=== PATIENT | female | born 1955 | race American Indian/Alaskan Native ===

== ENCOUNTER 2017-06-24 10:54 | Emergency (ER) | payer SELFPAY ==
[2017-06-24 11:04] VITALS: BP 145/94
--- NOTE | 2017-06-24 11:42 | Emergency Department Report ---
Blank Doc - Documentation Documentation: Patient is a 61-year-old asthmatic female who is presenting with neck pain. Patient states that for the last week she's had some minor pain in the left neck however at this worsened when she woke up this morning. Patient states is 8 out of 10 in severity with some radiation to the left upper extremity. Patient says it hurts when she moves and better when she is sitting still. Patient denies any chest pain shortness of breath cough fever chills at this time. Patient denies any trauma. CT of the C-spine will be performed to rule out shortening of the disc space for severe arthritis causing his pain
[2017-06-24] MEDS ORDERED: MOTRIN PO ONE (11:43)
[2017-06-24] MEDS ORDERED: PERCOCET 5/325 PO ONE (11:43)
--- NOTE | 2017-06-24 12:17 | Cat Scan Report ---
CT CERVICAL SPINE WITHOUT CONTRAST INDICATION: Pain. COMPARISON: None similar. FINDINGS: Noncontrast axial, sagittal and coronal CT reconstructions through the cervical spine demonstrate mild cervical spinal curvature reversal/kyphosis apex at C5-C6 with advanced degenerative changes as moderate spurring and disc narrowing. Mild C7 degenerative spurring also noted. Assessment of the spinal canal itself compromised from C5-C6 inferiorly due to shoulder soft tissues. Streak artifact from few radiopaque dental material. Normal imaged posterior fossa. Clear mastoid air cells. Intact craniocervical articulation with symmetric occipital condyles. Preserved anterior and posterior arches of C1, prevertebral soft tissues and the posterior elements. Normal thyroid. Clear imaged lung apices. On the obtained axial images: C5-C6 demonstrates right more than left uncovertebral spurring and neural foraminal narrowing, axial image 93, series 2. C6-C7 also demonstrates right more than left uncovertebral spurring and slight neural foraminal narrowing, axial image 104. C7-T1 demonstrates right more than left facet arthropathy. CONCLUSION: No acute cervical spine CT abnormality with moderate degenerative changes inferiorly, as described. Thank you for the opportunity to participate in this patient's care.
--- NOTE | 2017-06-24 12:54 | Emergency Department Report ---
HPI - General Chief Complaint: Neck Pain/Injury Time Seen by Provider: 06/24/17 11:34 - HPI HPI: Patient is a 61-year-old female who presents to ED complaining of left-sided neck pain for about a week. Patient states that this morning pain got worse. Patient states that she had no injuries or trauma to the neck. Patient states pain is localized to the left side of the neck and back to her shoulder. She denies any other symptoms, headache, dizziness, lightheadedness, blurry vision, chest pain, shortness of breath ED Past Medical Hx - Past Medical History Hx Hypertension: Yes - Surgical History Additional Surgical History: ROTATOR CUFF REPAIRS - Social History Smoking Status: Never Smoker Substance Use Type: None - Medications Home Medications: Home Medications Medication Instructions Recorded Confirmed Last Taken Type Methocarbamol [Robaxin TAB] 750 mg PO BID #30 tab 06/24/17 Unknown Rx oxyCODONE /ACETAMINOPHEN [Percocet 1 tab PO Q6HR PRN #10 tablet 06/24/17 Unknown Rx 5/325] ED Review of Systems ROS: Stated complaint: LEFT SIDE NECK PAIN Other details as noted in HPI Constitutional: denies: chills, fever Eyes: denies: eye pain, eye discharge, vision change ENT: denies: ear pain, throat pain Respiratory: denies: cough, shortness of breath, wheezing Cardiovascular: denies: chest pain, palpitations Endocrine: no symptoms reported Gastrointestinal: denies: abdominal pain, nausea, diarrhea Genitourinary: denies: urgency, dysuria, discharge Musculoskeletal: myalgia. denies: back pain, joint swelling, arthralgia Skin: denies: rash, lesions Neurological: denies: headache, weakness, paresthesias Psychiatric: denies: anxiety, depression Hematological/Lymphatic: denies: easy bleeding, easy bruising Physical Exam - Physical Exam Vital Signs: Vital Signs 06/24/17 11:01 Temperature 97.9 F Pulse Rate 84 Respiratory 20 Rate Blood Pressure 145/94 O2 Sat by Pulse 100 Oximetry Physical Exam: GENERAL: Alert and oriented x3, mild distress from pain, Normal Gait, atraumatic. HEAD: Head is normocephalic and a-traumatic. NECK: Supple. Non edematous, No lymphadenopathy or thyromegaly. No C-spine tenderness, full range of motion. Slight tenderness to palpation of the sternocleidomastoid muscles of the left, no lesions, LUNGS: Symetrical with respiration, No wheezing, no rales or crackles, CTAB. HEART: S1, S2 present, regular rate and rhythm without murmur, no rubs, no gallops. Non tender to palpation BACK: Full range of motion, no spinal tenderness, nontender to palpation. EXTREMITIES/MUSCULOSKELETAL: No cyanosis, clubbing, rash, lesions or edema. Full ROM bilaterally. UE Pulses 2+ bilaterally. NEUROLOGIC: The patient is cooperative with no focal neurologic deficits. Normal speech. Normal sensation in bilateral upper and lower extremities, No loss of sensation, SKIN: Warm and dry, No lesions, No ulceration or induration present. ED Course Vital Signs 06/24/17 11:01 Temperature 97.9 F Pulse Rate 84 Respiratory 20 Rate Blood Pressure 145/94 O2 Sat by Pulse 100 Oximetry ED Medical Decision Making - Radiology Data Radiology results: report reviewed, image reviewed CT CERVICAL SPINE WITHOUT CONTRAST INDICATION: Pain. COMPARISON: None similar. FINDINGS: Noncontrast axial, sagittal and coronal CT reconstructions through the cervical spine demonstrate mild cervical spinal curvature reversal/kyphosis apex at C5-C6 with advanced degenerative changes as moderate spurring and disc narrowing. Mild C7 degenerative spurring also noted. Assessment of the spinal canal itself compromised from C5-C6 inferiorly due to shoulder soft tissues. Streak artifact from few radiopaque dental material. Normal imaged posterior fossa. Clear mastoid air cells. Intact craniocervical articulation with symmetric occipital condyles. Preserved anterior and posterior arches of C1, prevertebral soft tissues and the posterior elements. Normal thyroid. Clear imaged lung apices. On the obtained axial images: C5-C6 demonstrates right more than left uncovertebral spurring and neural foraminal narrowing, axial image 93, series 2. C6-C7 also demonstrates right more than left uncovertebral spurring and slight neural foraminal narrowing, axial image 104. C7-T1 demonstrates right more than left facet arthropathy. CONCLUSION: No acute cervical spine CT abnormality with moderate degenerative changes inferiorly, as described. Thank you for the opportunity to participate in this patient's care. Transcribed By: RS Dictated By: BANDAR ASTUDILLO MD Electronically Authenticated By: BANDAR ASTUDILLO MD Signed Date/Time: 06/24/17 1213 - Medical Decision Making 61-year-old male presents with cervical muscle strain/spasm ED course: Patient received Motrin and Percocet triage. Spine CT scan of the neck ordered. CT scan shows no acute findings, impression is positive for narrowing otherwise normal CT reported above I discussed his findings with the patient. I discussed patient was given a referral to follow up with orthopedic. I discussed the patient does be muscular related injury or pinched nerve that could be causing pain from the narrowing Vital signs and normal. Patient was given Ultram and Robaxin. Patient states the Ultram ecstasy can only thing that makes her pain better's Percocet. I discussed with the patient about narcotic control. Pt was given 10 tablets of percocet for pain and d/c home. She was in no acute distress. Critical care attestation.: If time is entered above; I have spent that time in minutes in the direct care of this critically ill patient, excluding procedure time. ED Disposition Clinical Impression: Strain of cervical portion of trapezius muscle Cervical muscle strain Qualifiers: Encounter type: initial encounter Qualified Code(s): S16.1XXA - Strain of muscle, fascia and tendon at neck level, initial encounter Disposition: DC-01 TO HOME OR SELFCARE Is pt being admited?: No Does the pt Need Aspirin: No Condition: Stable Instructions: Muscle Strain (ED), Trigger Point Pain (ED), Musculoskeletal Pain (ED), Heat Pack Application (ED) Additional Instructions: Make sure to follow up with the primary care physician as discussed. Take all your medications as you've been prescribed. If you have any worsening symptoms or develop new symptoms please return to ED immediately. Prescriptions: Methocarbamol [Robaxin TAB] 750 mg PO BID #30 tab oxyCODONE /ACETAMINOPHEN [Percocet 5/325] 1 tab PO Q6HR PRN #10 tablet PRN Reason: Pain Referrals: PRIMARY CAREMD [Primary Care Provider] - 3-5 Days FREDA LOPES MD [Staff Physician] - 3-5 Days [facility] [Outside] - 3-5 Days [facility] [place] [Outside] - 3-5 Days Forms: Accompanied Note, Work/School Release Form(ED) Time of Disposition: 13:24
[2017-06-24] MEDS ORDERED: DELTASONE PO ONE (13:25)
== END 2017-06-24 14:14 | disposition home or self-care (01) ==
LOC: ED 10:54
DX: S16.1XXA Strain of muscle, fascia and tendon at neck level, initial encounter (principal); I10 Essential (primary) hypertension; X58.XXXA Exposure to other specified factors, initial encounter; Y93.89 Activity, other specified; Y92.89 Other specified places as the place of occurrence of the external cause; Y99.8 Other external cause status
CPT/HCPCS: 72125; 99284; J7512

== ENCOUNTER 2019-04-28 15:15 | Emergency (ER) | payer SELFPAY ==
[2019-04-28 15:18] VITALS: BP 151/95
--- NOTE | 2019-04-28 17:32 | Emergency Department Report ---
- General Chief Complaint: Upper Respiratory Infection Stated Complaint: COLD SYM Time Seen by Provider: 04/28/19 17:18 Source: patient Mode of arrival: Ambulatory Limitations: No Limitations - History of Present Illness MD Complaint: cough, sore throat, rhinorrhea, nasal congestion -: Sudden, days(s) (2) Severity: mild Quality: sharp Consistency: constant Improves With: nothing Worsens With: nothing Context: sick contacts Associated Symptoms: fever, chills, myalgias, rhinorrhea, nasal congestion, sore throat, cough. denies: nausea, vomiting, confusion, right sweats, weight loss, hoarseness - Related Data Previous Rx's Medication Instructions Recorded Last Taken Type methOCARBAMOL [Robaxin TAB] 750 mg PO BID #30 tab 06/24/17 Unknown Rx oxyCODONE /ACETAMINOPHEN [Percocet 1 tab PO Q6HR PRN #10 tablet 06/24/17 Unknown Rx 5/325] ALBUTEROL Inhaler (OR & NICU) 1 puff IH Q4-6H PRN #1 inha 04/28/19 Unknown Rx [ProAir HFA Inhaler] Oseltamivir [Tamiflu] 75 mg PO BID #10 cap 04/28/19 Unknown Rx guaiFENesin/CODEINE [Robitussin AC] 5 ml PO Q6H PRN #120 ml 04/28/19 Unknown Rx Allergies Allergy/AdvReac Type Severity Reaction Status Date / Time No Known Allergies Allergy Unverified 06/24/17 11:00 ED Review of Systems ROS: Stated complaint: COLD SYM Other details as noted in HPI Comment: All other systems reviewed and negative ED Past Medical Hx - Past Medical History Hx Hypertension: Yes - Surgical History Additional Surgical History: ROTATOR CUFF REPAIRS - Social History Smoking Status: Never Smoker - Medications Home Medications: Home Medications Medication Instructions Recorded Confirmed Last Taken Type methOCARBAMOL [Robaxin TAB] 750 mg PO BID #30 tab 06/24/17 Unknown Rx oxyCODONE /ACETAMINOPHEN [Percocet 1 tab PO Q6HR PRN #10 tablet 06/24/17 Unknown Rx 5/325] ALBUTEROL Inhaler (OR & NICU) 1 puff IH Q4-6H PRN #1 inha 04/28/19 Unknown Rx [ProAir HFA Inhaler] Oseltamivir [Tamiflu] 75 mg PO BID #10 cap 04/28/19 Unknown Rx guaiFENesin/CODEINE [Robitussin AC] 5 ml PO Q6H PRN #120 ml 04/28/19 Unknown Rx ED Physical Exam - General Limitations: No Limitations General appearance: alert, in no apparent distress - Head Head exam: Present: atraumatic, normocephalic - Eye Eye exam: Present: normal appearance - ENT ENT exam: Present: mucous membranes moist, other (nasal congestion with clear discharge.Nasal drainage is noted as well. Small effusion behind the right tympanic membrane.) - Neck Neck exam: Present: normal inspection - Respiratory Respiratory exam: Present: normal lung sounds bilaterally. Absent: respiratory distress, wheezes, rales, rhonchi - Cardiovascular Cardiovascular Exam: Present: regular rate, normal rhythm. Absent: systolic murmur, diastolic murmur, rubs, gallop - GI/Abdominal GI/Abdominal exam: Present: soft, normal bowel sounds. Absent: tenderness, guarding - Extremities Exam Extremities exam: Present: normal inspection - Back Exam Back exam: Present: normal inspection - Neurological Exam Neurological exam: Present: alert, oriented X3 - Psychiatric Psychiatric exam: Present: normal affect, normal mood - Skin Skin exam: Present: warm, dry, intact, normal color. Absent: rash ED Course Vital Signs 04/28/19 15:17 Temperature 97.3 F L Pulse Rate 105 H Respiratory 18 Rate Blood Pressure 151/95 O2 Sat by Pulse 97 Oximetry ED Medical Decision Making - Medical Decision Making 63-year-old -[place] female fever, cough, sore throat, malaise consistent with viral illness such as Influenza. Patient Not , from SNF, chronically ill or immunosuppressed. Given History and Exam I have a lower suspicion for: Emergent CardioPulmonary causes [such as Acute Asthma or COPD Exacerbation, acute Heart Failure or exacerbation, PE, PTX, atypical ACS, PNA]. Emergent Otolaryngeal causes [such as GELATIN POWDER MIXER, RPA, Ludwigs, Epiglottitis, EBV]. Emergent Travel or Immunosuppressive related infectious causes[such as acute HIV, SARS, MERS]. Rx: Given patient symptomatic less than 48hrs, age, and folllow up I will instruct on the need for antiviral therapy and symptomatic treatment . We'll also discuss conservative self-care and techniques to reduce spread for this suspected transient and self-resolving illness. Rx: Oseltamivir 75mg PO BID x 5 days as well as instruct on conservative self- care and techniques to reduce spread for this suspected transient and self- resolving illness. Critical care attestation.: If time is entered above; I have spent that time in minutes in the direct care of this critically ill patient, excluding procedure time. ED Disposition Clinical Impression: Viral syndrome Disposition: DC-01 TO HOME OR SELFCARE Is pt being admited?: No Does the pt Need Aspirin: No Condition: Stable Instructions: Viral Syndrome (ED) Referrals: [facility] [Provider Group] - 3-5 Days
== END 2019-04-28 17:40 | disposition home or self-care (01) ==
LOC: ED 15:15
DX: B34.9 Viral infection, unspecified (principal); I10 Essential (primary) hypertension; Z79.899 Other long term (current) drug therapy

== ENCOUNTER 2019-05-04 09:41 | Outpatient (CLI) | payer BC ==
--- NOTE | 2019-05-04 10:37 | XRay Report ---
CHEST 2 VIEWS INDICATION: R07.81 PLEURITIC PAIN/R68.89 FLU-LIKE SYMPTOMS. COMPARISON: None. FINDINGS: Support devices: None. Heart: Within normal limits. Pulmonary vasculature: Normal. Lungs/pleura: No acute air space or interstitial disease. No pleural effusion. No pneumothorax. Additional findings: Aortic tortuosity. IMPRESSION: 1. No acute findings. 2. Hypertensive/atherosclerotic changes in the aorta. Signer Name: Nicanor Simon MD Signed: 05/04/2019 10:33 AM Workstation Name: [id number]
== END 2019-05-04 09:42 | disposition home or self-care (01) ==
LOC: XRAY 09:41
PROVIDERS: ATTEND Family Medicine
DX: Q25.46 Tortuous aortic arch (principal); R07.81 Pleurodynia; R68.89 Other general symptoms and signs
CPT/HCPCS: 71046

== ENCOUNTER 2020-03-14 08:06 | Outpatient (CLI) | payer BC ==
--- NOTE | 2020-03-14 09:03 | XRay Report ---
BILATERAL KNEES 4 VIEWS INDICATION: LETI. OSTEOARTHRITIS OF KNEE/LETI. KNEE PAIN/SWELLING LT KNEE JOINT. COMPARISON: None. IMPRESSION: Normal bone mineralization. No acute osseous injury or bone lesion is detected. Mild tr icompartmental osteoarthritic changes are identified in the right knee. Moderate tricompartmental ost eoarthritic changes are identified in the left knee. There is an 8 mm calcific density just superior to the right patella which could represent a calcified foreign body in the suprapatellar bursa. Small bilateral joint effusions are identified. Signer Name: Brian Tellez Jr, MD Signed: 03/14/2020 8:59 AM Workstation Name: [id number]
== END 2020-03-14 08:07 | disposition home or self-care (01) ==
LOC: XRAY 08:06
PROVIDERS: ATTEND Physician Assistant Medical
DX: M17.0 Bilateral primary osteoarthritis of knee (principal)

== ENCOUNTER 2020-06-09 15:06 | Outpatient (CLI) | payer BC ==
[2020-06-09 17:26] LABS: Hepatitis C Virus Antibody Non-Reactive (NonReactive)
== END 2020-06-09 15:07 | disposition home or self-care (01) ==
LOC: LAB 15:06
PROVIDERS: ATTEND Obstetrics & Gynecology
DX: Z11.3 Encounter for screening for infections with a predominantly sexual mode of transmission (principal)
CPT/HCPCS: 36415; 86592; 86689; 86706; 86803

== ENCOUNTER 2020-07-29 09:20 | Outpatient (CLI) | payer BC ==
--- NOTE | 2020-07-31 08:21 | Mammography Report ---
DIGITAL SCREENING MAMMOGRAM WITH CAD, 07/29/2020 CLINICAL INFORMATION / INDICATION: Routine screening mammography. TECHNIQUE: Digital bilateral 2D mammography was obtained in the craniocaudal and mediolateral obliqu e projections. This examination was interpreted with the benefit of Computer-Aided Detection analysis . COMPARISON: 02/12/2020, 02/27/2020, 07/24/2019, 02/09/2013 FINDINGS: Breast Density: There are scattered areas of fibroglandular density. No dominant mass, suspicious calcifications, or architectural distortion in either breast. IMPRESSION: No mammographic evidence of malignancy. Follow up recommendation: Routine yearly BI-RADS Category 1: Negative. A "normal" or negative report should not discourage follow up or biopsy of a clinically significant f inding. A written summary of these findings will be mailed to the patient. The patient will be entered into a mammography reporting system which will generate a reminder letter for the patient's next appointmen t at the appropriate interval. The [employer] recommends yearly mammograms starting at age 40 and continuing as l sumi as a woman is in good health. Breast MRI is recommended for women with an approximate 20-25% or greater lifetime risk of breast cancer, including women with a strong family history of breast or ova wade cancer or who have been treated for Hodgkin's disease. Signer Name: Alyssa Mcfarland MD Signed: 07/31/2020 8:17 AM Workstation Name: [id number]
== END 2020-07-29 09:21 | disposition home or self-care (01) ==
LOC: SPVWC 09:20
PROVIDERS: ATTEND Surgery
DX: Z12.31 Encounter for screening mammogram for malignant neoplasm of breast (principal)
CPT/HCPCS: 77067